=== PATIENT | female | born 2000 | race African-American/Black ===

== ENCOUNTER 2022-04-07 13:20 | Emergency (ER) | payer OTHER, SELFPAY ==
[2022-04-07 13:31] VITALS: BP 140/92; PULSE 72; RESP 16; TEMP 36.8; O2SAT 99; BMI 26.4
[2022-04-07 17:26] LABS: MANUAL DIFF FLAG NO
[2022-04-07 17:28] LABS: Basophils Percent Auto 0.2 % (0-2); Eosinophils Absolute Auto 0.1 X10*3/uL (0.0-0.4); Eosinophils Percent Auto 0.5 % (0-4); Hematocrit 38.7 % (37.0-47.0); Imm Gran Abs Auto 0.03 X10*3/uL (0.00-0.03); Imm Gran Pct Auto 0.3 % (0.0-0.4); Lymphocytes Absolute Auto 2.9 X10*3/uL (1.2-4.9); Lymphocytes Percent Auto 26.6 % (20-40); Mean Corpuscular Hemoglobin 25.7 pg (27.0-33.0); Mean Corpuscular Volume 82.9 fL (80.0-98.0); Mean Platelet Volume 9.7 fL (9.4-12.3); Monocytes Absolute Auto 0.7 X10*3/uL (0.1-1.2); Monocytes Percent Auto 6.4 % (2-11); Neutrophils Absolute Auto 7.2 x10*3/uL (2.0-8.3); Platelet Count 524 X10*3/uL (160-400); Red Blood Count 4.67 X10*6/uL (4.20-5.50); White Blood Count 10.9 X10*3/uL (4.8-10.8)
[2022-04-07 17:47] LABS: Alanine Aminotransferase 15 U/L (0-31); Albumin Level 4.4 g/dL (3.5-5.0); Alkaline Phosphatase 92 U/L (39-117); Anion Gap 15 (12-20); Aspartate Amino Transferase 18 U/L (5-31); Bilirubin Total 0.5 mg/dL (0.0-1.0); Blood Urea Nitrogen 10 mg/dL (9-16); Calcium 9.7 mg/dL (8.4-10.2); Carbon Dioxide 28 mmol/L (22-29); Chloride 100 mmol/L (96-108); Creatinine Clr Calc Pharmacy 136.8; Estimated Glomerular Filt Rate > 60; Glucose Random 82 mg/dL (60-115); Potassium 4.2 mmol/L (3.3-5.1); Sodium 139 mmol/L (135-145); Total Protein 7.3 g/dL (6.5-8.0)
--- NOTE | 2022-04-07 18:13 | ED.GENADULT ---
HPI - General Adult General Chief complaint: Abdominal Pain Stated complaint: Abd pain/Neck pain Time Seen by Provider: 04/07/22 18:12 Source: patient Mode of arrival: ambulatory Limitations: no limitations History of Present Illness HPI narrative: Patient is a 22 year old female presenting to the emergency department today with intermittent abdominal pain and left sided anterior neck pain. Patient states that for months she has been having stomach issues where it hurts when she eats and hurts when she doesn't eat. Patient states that her left neck has also been hurting on and off for months as well. Patient denies any dizziness, lightheadedness, nausea, vomiting, fever, chills, blurry vision, double vision, loss of vision, chest pain, difficulty breathing, shortness of breath, back pain, night sweats, pain with urination, increased urinary frequency, increased urinary urgency, blood in her urine or stool, syncope or a near syncopal episode, recent trauma or falls, bowel incontinence, bladder incontinence, bowel retention, bladder retention, or any other complaints at this time. Onset (ago): month(s) Severity: mild Severity scale (1-10): 1 Quality: aching and dull Pain Consistency: intermittent Relieving factors: none Exacerbating factors: none Associated symptoms: denies other symptoms Treatments prior to arrival: none Related Data Allergies Allergy/AdvReac Type Severity Reaction Status Date / Time No Known Allergies Allergy Verified 04/07/22 18:37 Review of Systems Constitutional: Constitutional: Reports no additional constitutional complaints, Denies chills, Denies fever(s) and Denies night sweats Eyes: Eyes: Reports no additional eye complaints, Denies blurry vision, Denies change in vision, Denies diplopia, Denies eye discharge, Denies loss of vision and Denies eye pain ENT: Denies dizziness and Reports neck pain Cardiovascular: Cardiovascular: Reports no additional cardiovascular complaints, Denies chest pain, Denies lightheadedness, Denies Loss of Consciousness and Denies dyspnea Respiratory: Respiratory: Reports no additional respiratory complaints and Denies dyspnea Gastrointestinal: Gastrointestinal: Reports no additional gastrointestinal complaints, Reports abdominal pain, Denies melena, Denies hematochezia, Denies change in bowel habits and Denies change in stool character Genitourinary: Genitourinary: Denies hematuria, Denies urinary frequency, Denies dysuria, Denies urinary incontinence, Denies urinary hesitancy and Denies urinary urgency Musculoskeletal: Musculoskeletal: Reports no additional musculoskeletal complaints, Reports neck pain, Denies numbness and Denies tingling Neurologic: Denies dizziness, Denies loss of vision, Denies numbness and Denies tingling Psychiatric: Psychiatric: Reports no additional psychiatric complaints Endocrine: Endocrine: Reports no additional endocrine complaints Hematologic/Lymphatic: Hematologic/Lymphatic: Reports no additional hematologic/lymphatic complaints Allergic/Immunologic: Allergic/Immunologic: Reports no additional allergic/immunologic complaints [facility] Past Medical History Attestation statement: The following information was validated with the patient. Source: old records reviewed Social History Social History Advance Directives: No Advance Directives Information Provided: Yes Physical Exam ED Vital Signs: Vital Signs - 24 hr 04/07/22 13:31 Temperature 98.3 F Pulse Rate 72 Respiratory Rate 16 Blood Pressure 140/92 H Pulse Oximetry 99 Oxygen Delivery Method Room Air BMI result Body Mass Index 26.4 Const General: cooperative, no acute distress, alert and awake Nutritional Appearance: well nourished Orientation/consciousness: patient oriented x3 Limitations: no limitations HENMT Head: Yes normal to inspection and Yes atraumatic Ears: hearing grossly normal bilaterally and external ears normal General nose exam: Normal external nose present, no nasal discharge noted and no epistaxis Face and sinus: Yes normal facial exam, No abrasion and No laceration Mouth: Normal oral and palatal mucosa present, no drooling and no muffled voice Eyes General: appearance normal, both eyes and all related structures Periorbital: periorbital findings normal Eyelids: Yes eyelids normal Conjunctivae: conjunctivae normal Pupils: Equal, round and reactive pupils present EOM: EOMs intact bilaterally Neck Neck: Yes normal visual inspection, Yes full ROM and Yes no lymphadenopathy Chest Chest palpation & inspection: normal inspection of the chest Resp Effort & Inspection: normal respiratory effort and able to speak in complete sentences Auscultation: clear to auscultation bilaterally Cardio Rate: regular rate Rhythm: regular rhythm GI Inspection: Yes normal to inspection Palpation (GI): Soft to palpation, not firm, nontender, no guarding and not rigid Neuro General: patient oriented x3 and moves all extremities Cranial nerves: Yes Equal, round and reactive pupils present Cognition (Neuro): normal cognition Motor exam (neuro): 5/5 motor strength present throughout Sensory Exam: Normal double simultaneous stimulation for sensation Coordination: [id number] test normal Extrem General: Yes normal to inspection, Yes full ROM and Yes capillary refill normal Psych Appearance: grossly normal Mental Status: mental status grossly normal Affect: normal affect Attitude: cooperative Thought process: Normal thought process present Thought content: Normal thought content present Insight: Good insight present (Psych) Medical Decision Making MDM Narrative Medical decision making narrative: Patient is a 22 year old female presenting to the emergency department today with left sided neck pain and intermittent abdominal pain. Patient's physical exam was unremarkable. Patient's blood work was unremarkable. I explained my physical exam findings as well as all test results to the patient. I answered all questions asked by the patient. I stressed the importance of the patient taking her medication as prescribed. I stressed the importance of the patient following up with her primary care provider and a GI specialist. I stressed the importance of the patient returning to the emergency department immediately if her symptoms were to worsen or if she were to develop any dizziness, shortness of breath, difficulty breathing, chest pain, blurry vision, loss of vision, nausea, vomiting, abdominal pain, fever, chills, back pain, or any other complaints. Patient verbalized agreement and understanding with this treatment plan and discharge. Medical Records Medical records reviewed: Yes I reviewed the patient's medical records. Lab Data Lab results reviewed: Yes I reviewed the patient's lab results. Result diagrams: 04/07/22 17:21 04/07/22 17:21 Labs: Lab Results 04/07/22 04/07/22 Range/Units 17:21 17:21 WBC 10.9 H (4.8-10.8) X10*3/uL RBC 4.67 (4.20-5.50) X10*6/uL Hgb 12.0 (12.0-16.0) g/dl Hct 38.7 (37.0-47.0) % MCV 82.9 (80.0-98.0) fL MCH 25.7 L (27.0-33.0) pg MCHC 31.0 (31.0-35.0) g/dl RDW 15.0 (11.0-16.0) % Plt Count 524 H (160-400) X10*3/uL MPV 9.7 (9.4-12.3) fL Immature Gran % (Auto) 0.3 (0.0-0.4) % Neut % (Auto) 66.0 (45-73) % Lymph % (Auto) 26.6 (20-40) % Starr % (Auto) 6.4 (2-11) % Eos % (Auto) 0.5 (0-4) % Baso % (Auto) 0.2 (0-2) % Lymph # (Auto) 2.9 (1.2-4.9) X10*3/uL Starr # (Auto) 0.7 (0.1-1.2) X10*3/uL Eos # (Auto) 0.1 (0.0-0.4) X10*3/uL Baso # (Auto) 0.0 (0.0-0.2) X10*3/uL Abs Immat Gran (auto) 0.03 (0.00-0.03) X10*3/uL Absolute Neuts (auto) 7.2 (2.0-8.3) x10*3/uL Absolute Nucleated RBC 0.000 (0.0-0.012) X10*3/uL Nucleated RBC % (auto) 0.0 (0.0-0.2) /100WBC Sodium 139 (135-145) mmol/L Potassium 4.2 (3.3-5.1) mmol/L Chloride 100 (96-108) mmol/L Carbon Dioxide 28 (22-29) mmol/L Anion Gap 15 (12-20) BUN 10 (9-16) mg/dL Creatinine 0.79 (0.5-1.4) mg/dL Estim Creat Clear Calc 136.8 Estimated GFR > 60 Random Glucose 82 (60-115) mg/dL Calcium 9.7 (8.4-10.2) mg/dL Total Bilirubin 0.5 (0.0-1.0) mg/dL AST 18 (5-31) U/L ALT 15 (0-31) U/L Alkaline Phosphatase 92 (39-117) U/L Total Protein 7.3 (6.5-8.0) g/dL Albumin 4.4 (3.5-5.0) g/dL Discharge Plan Discharge Clinical Impression: Gastritis, Gastroesophageal reflux disease, Cervical radiculopathy Patient Disposition: Home, Self-Care Instructions: Gastritis (ED), Diet for Stomach Ulcers and Gastritis (ED), Gastroesophageal Reflux Disease (ED), Cervical Radiculopathy (ED) Additional Instructions: Take OTC Omeprazole as we discussed. AVOID NSAID medications such as ibuprofen/Motrin, Excedrin, naproxen, etc. Follow up with your primary care provider and a GI specialist. Return to the emergency department immediately if your symptoms worsen or if you develop any dizziness, shortness of breath, difficulty breathing, chest pain, blurry vision, loss of vision, nausea, vomiting, abdominal pain, fever, chills, back pain, or any other complaints. Referrals: [facility] [place] Gastroenterology Services [Provider Group] (Call to establish and follow up with a GI specialist. ) [facility] [place] [facility] [Provider Group] (Call to establish and follow up with a primary care provider. If you already have a primary care provider, please follow up with them. ) [facility] [place] [facility] [Provider Group] (Call to establish and follow up with a primary care provider. If you already have a primary care provider, please follow up with them. ) [facility] [place] [facility] [Provider Group] (Call to establish and follow up with a primary care provider. If you already have a primary care provider, please follow up with them. ) Stand Alone Forms: Work/School Release Print Language: Mexican
--- NOTE | 2022-04-07 18:59 | PC.NURSE ---
Reviewed discharge instruction with pt. pt verbalized understanding .
--- NOTE | 2022-04-07 19:00 | PC.NURSE ---
pt a&o, no sob or chest pain. no sign of distress. discharged with a steady walk.
== END 2022-04-07 19:05 | disposition home or self-care (01) ==
PROVIDERS: Emergency Provider Student in an Organized Health Care Education/Training Program
DX: K21.9 Gastro-esophageal reflux disease without esophagitis (principal); M54.2 Cervicalgia; M54.12 Radiculopathy, cervical region; R10.9 Unspecified abdominal pain; Z79.899 Other long term (current) drug therapy
CPT/HCPCS: 36415; 80053; 85025; 99282; 99283

== ENCOUNTER 2023-03-26 12:06 | Outpatient (AMB) | payer MEDICAID, SELFPAY ==
[2023-03-26 12:40] VITALS: BP 104/56; PULSE 86; BMI 27.1
--- NOTE | 2023-03-26 12:40 | MHC.OFFVIS ---
Intake Vital Signs 03/26/23 12:40 Height 5 ft 11 in Weight 194 lb 7.163 oz BMI 27.1 BP 104/56 L Blood Pressure Location Lt brachial Position Sitting Pulse 86 Intake Visit Reasons: ED Follow up GERD Intake Note: Patient presents to in office visit today in follow up of ED visit. CC: Patient states she was seen at the ED with c/o burning from her stomach. She states at night she is up and unable to sleep if she does not eat and she also gets anxiety. Patient reports she continues to have abdominal pain but no burning. She also c/o heartburn, nausea, and occasional diarrhea. Allergies No Known Allergies Allergy (Verified 03/26/23 12:44) HPI HPI Comments History of Present Illness Details 23 y.o F with no significant PMH who is here for abdominal discomfort. Pt reports initially noticing abd discomfort 3 years ago which was burning in character which was being triggered by certain foods. However 6 months ago started noticing it daily. Associated with nausea. Pain gets worse on eating. No untentional weight loss. No changes in bowel habits. No new meds x 1 year. Was seen in ER for similar sx a year ago and at that time was prescribed PPI which she only took for a few weeks. PFSH Surgical History No pertinent past surgical history Family History Father Leukemia Paternal Aunt Stomach cancer Social History Alcohol intake: never Patient Tobacco Use Status: Never used Tobacco Review of Systems Const All systems reviewed & are unremarkable except as noted in HPI and below Physical Exam Vital Signs: Last Vital Signs Pulse 86 03/26/23 12:40 BP 104/56 L 03/26/23 12:40 BMI result Body Mass Index 27.1 Gen appear: NAD HEENT: nonicteric, no cervical lymphadenopathy Chest: CTA CVS: Regular S1/S2 Abd: soft, nontender, nondistended, bowel sounds + Ext: no peripheral edema Neuro: A/Ox3, noted to move all extremities spontaneously Psych: interacting appropriately Assessment & Plan Assessment & Plan (1) Abdominal pain: Code(s): R10.9 - Unspecified abdominal pain Plan Ddx include GERD, PUD, celiac disease, IBD, IBS, symptomatic cholelithiasis Plan: - Omeprazole 20mg x 6-8 weeks -? CBC, CMP, TFTs -? Celiac serology -? Fecal calpro -? US Abd -? Nonurgent EGD Orders: Orders Comprehensive Met. Panel 03/26/23 R10.9 - Unspecified abdominal pain Complete Blood Count no Diff 03/26/23 R10.9 - Unspecified abdominal pain Calprotectin, Fecal 03/26/23 R10.9 - Unspecified abdominal pain TSH reflex Free T4 03/26/23 R10.9 - Unspecified abdominal pain Immunoglobulin A 03/26/23 R10.9 - Unspecified abdominal pain Transglutaminase IgA 03/26/23 R10.9 - Unspecified abdominal pain US abdomen complete 03/26/23 R10.9 - Unspecified abdominal pain Medications: New omeprazole 20 mg PO DAILY 90 caps 0RF Coding Level of Care Code New Pt Level 4 (24657) Diagnoses Abdominal pain R10.9
== END 2023-03-26 13:55 | disposition home or self-care (01) ==
PROVIDERS: Visit Provider Internal Medicine
DX: R10.9 Unspecified abdominal pain (principal)
CPT/HCPCS: 99204

== ENCOUNTER 2023-03-26 12:06 | Outpatient (REF) | payer MEDICAID, SELFPAY ==
[2023-03-26 14:01] LABS: Hematocrit 40.6 % (37.0-47.0); Hemoglobin 12.9 g/dl (12.0-16.0); Mean Corpuscular HGB Conc 31.8 g/dl (31.0-35.0); Mean Corpuscular Hemoglobin 26.9 pg (27.0-33.0); Mean Corpuscular Volume 84.6 fL (80.0-98.0); Mean Platelet Volume 10.5 fL (9.4-12.3); Platelet Count 444 X10*3/uL (160-400); Red Cell Distribution Width 15.7 % (11.0-16.0); White Blood Count 7.5 X10*3/uL (4.8-10.8)
[2023-03-26 14:43] LABS: Alanine Aminotransferase 13 U/L (0-31); Albumin Level 4.3 g/dL (3.5-5.0); Alkaline Phosphatase 73 U/L (39-117); Anion Gap 10 (12-20); Aspartate Amino Transferase 14 U/L (5-31); Bilirubin Total 0.3 mg/dL (0.0-1.0); Blood Urea Nitrogen 8 mg/dL (9-16); Calcium 9.6 mg/dL (8.4-10.2); Carbon Dioxide 31 mmol/L (22-29); Chloride 103 mmol/L (96-108); Estimated Glomerular Filt Rate > 60; Glucose Random 86 mg/dL (60-115); Potassium 4.1 mmol/L (3.3-5.1); Sodium 140 mmol/L (135-145); Total Protein 7.1 g/dL (6.5-8.0)
[2023-03-26 14:59] LABS: TSH reflex Free T4 1.85 uIU/mL (0.32-4.0)
[2023-03-28 12:58] LABS: Transglutaminase IgA <1.0 U/mL
[2023-03-28 16:32] LABS: Immunoglobulin A 149 mg/dL (47-310)
== END 2023-03-26 12:07 | disposition home or self-care (01) ==
LOC: HO.LAB 12:06
PROVIDERS: Visit Provider Internal Medicine
DX: R10.9 Unspecified abdominal pain (principal); K21.9 Gastro-esophageal reflux disease without esophagitis
CPT/HCPCS: 36415; 80053; 82784; 84443; 85027; 86364; 99202